=== PATIENT | female | born 1990 | race Caucasian/White ===

== ENCOUNTER 2022-09-22 08:48 | Outpatient (CLI) | payer OTHER, SELFPAY | END 2022-09-22 08:49 | disposition home or self-care (01) | PROVIDERS: PCP Family Medicine; Visit Provider Family Medicine | DX: Z00.00 Encounter for general adult medical examination without abnormal findings (principal); N91.2 Amenorrhea, unspecified; R68.82 Decreased libido; Z13.6 Encounter for screening for cardiovascular disorders | CPT/HCPCS: 80048; 80061; 83525; 84144; 84403; 84443 ==

== ENCOUNTER 2022-10-08 11:37 | Outpatient (CLI) | payer OTHER, SELFPAY | END 2022-10-08 11:38 | disposition home or self-care (01) | PROVIDERS: PCP Family Medicine; Visit Provider Registered Nurse | DX: Z00.00 Encounter for general adult medical examination without abnormal findings (principal); R68.82 Decreased libido; N91.5 Oligomenorrhea, unspecified; E28.2 Polycystic ovarian syndrome; F41.9 Anxiety disorder, unspecified; Z12.4 Encounter for screening for malignant neoplasm of cervix; Z01.818 Encounter for other preprocedural examination | CPT/HCPCS: 83001; 83498; 84146 ==

== ENCOUNTER 2022-12-21 15:02 | Outpatient (CLI) | payer OTHER, SELFPAY | END 2022-12-21 15:03 | disposition home or self-care (01) | LOC: LKVREF 15:03 | PROVIDERS: PCP Family Medicine; Visit Provider Family Medicine | DX: Z00.00 Encounter for general adult medical examination without abnormal findings (principal); R10.9 Unspecified abdominal pain | CPT/HCPCS: 80048; 80076 ==

== ENCOUNTER 2024-04-14 10:57 | Outpatient (CLI) | payer OTHER, SELFPAY | END 2024-04-14 10:58 | disposition home or self-care (01) | PROVIDERS: PCP Family Medicine; Visit Provider Family Medicine | DX: Z00.00 Encounter for general adult medical examination without abnormal findings (principal); E78.00 Pure hypercholesterolemia, unspecified; E28.2 Polycystic ovarian syndrome; R53.83 Other fatigue; F41.9 Anxiety disorder, unspecified; F43.23 Adjustment disorder with mixed anxiety and depressed mood | CPT/HCPCS: 80053; 80061; 84403; 84443 ==